=== PATIENT | female | born 1990 | race Caucasian/White ===

== ENCOUNTER 2017-01-26 18:05 | Emergency (ER) | payer OTHER ==
[~2017-01-26] VITALS: Wt 83.0 kg
[~2017-01-26 18:05] MED LIST: CALC600T11 PO; FERR240T9 PO; IBUP800T25 PO; PERCOCET PO; PRENAT PO
[2017-01-26] MEDS ORDERED: IBUPROFEN 600 MG TAB PO ONE (18:30)
--- NOTE | 2017-01-26 18:58 | ERD ---
ER Documentation Chief Complaint Date/Time DATE: 01/26/17 TIME: 18:54 Chief Complaint RIGHT ANKLE INJURY S/P FALL FROM STAIRS, NO KO HPI 26-year-old female presents here in emergency department for complaints right ankle and foot pain after twisting it while falling off the stairs today. Patient's complaining of right ankle pain, right foot pain throbbing pain, 6/10 scale, worse upon movement, patient did not take any medications to help with symptoms. Patient denies any fever or chills. ROS All systems reviewed and are negative except as per history of present illness. Medications Home Meds Active Scripts Oxycodone Hcl/Acetaminophen (Percocet) 1 Tab Tab, 2 TAB PO Q4H Y for PAIN LEVEL 6-10, #30 TAB 0 Refills Prov:JIMMY GALVAN MD 03/19/15 Ibuprofen* (Ibuprofen*) 800 Mg Tab, 800 MG PO Q8, #20 0 Refills Prov:JIMMY GALVAN MD 03/19/15 Reported Medications Calcium Carbonate* (Calcium Carbonate*) 600 MG Ca Tab, 600 MG PO DAILY, TAB 12/11/14 Ferrous Gluconate (Iron) 1 Tab Tablet, 1 TAB PO DAILY 12/11/14 Multivit/Min/Fol Ac/Iron/Pren* ( S*) 1 Tab Tab, 1 TAB PO DAILY, TAB 12/11/14 Allergies Allergies: Coded Allergies: No Known Allergy (Verified , 03/23/15) PMhx/Soc Medical and Surgical Hx: pt denies Medical Hx, pt denies Surgical Hx Hx Alcohol Use: No Hx Substance Use: No Hx Tobacco Use: No Smoking Status: Never smoker FmHx Family History: No coronary disease, No diabetes, No other Physical Exam Vitals Vital Signs Date Time Temp Pulse Resp B/P Pulse Ox O2 Delivery O2 Flow Rate FiO2 01/26/17 18:08 99.1 96 17 145/74 98 Physical Exam GENERAL: The patient is well developed and appropriate for usual state of health, in no apparent distress. CHEST: Clear to auscultation bilaterally. There are no rales, wheezes or rhonchi. HEART: Regular rate and rhythm. No murmurs, clicks, rubs or gallops. No S3 or S4. ABDOMEN: Soft, nontender and nondistended. Good bowel sounds. No rebound or guarding. No gross peritonitis. No gross organomegaly or masses. No Stafford sign or McBurney point tenderness. BACK: No midline or flank tenderness. EXTREMITIES: Equal pulses bilaterally. There is no peripheral clubbing, cyanosis or edema. No focal swelling or erythema. Full range of motion. Grossly neurovascularly intact. NEURO: Alert and oriented. Cranial nerves 2-12 intact. Motor strength in all 4 extremities with 5/5 strength. Sensation grossly intact. Normal speech and gait. SKIN: There is no apparent rash or petechia. The skin is warm and dry. HEMATOLOGIC AND LYMPHATIC: There is no evidence of excessive bruising or lymphedema. No gross cervical, axillary, or inguinal lymphadenopathy. Results 24 hrs Current Medications Medications (Trade) Dose Ordered Sig/Bakari Route PRN Reason Start Time Stop Time Status Last Admin Dose Admin Ibuprofen (Motrin) 600 mg ONCE ONCE PO 01/26/17 18:30 01/26/17 18:31 DC 01/26/17 18:35 Patient was given medication for pain here in emergency department, after treatment, patient verbalized feeling much better. Patient's pain is improved. PROCEDURE: XR Right Ankle CLINICAL INDICATION: Pain TECHNIQUE: Standard 3 view radiographs were submitted. COMPARISON: None FINDINGS: Osseous structures: Well mineralized and intact with no fracture or destructive process identified. Joint spaces: The ankle mortise is anatomically maintained. Soft tissues: There is medial soft tissue prominence. IMPRESSION: 1. Medial soft tissue prominence. 2. Otherwise, unremarkable right ankle series. Physician Renato Date Time Electronically viewed and signed by Physician Renato on 01/26/2017 19:33 RH/ CC: JAZ JAIMES NP PROCEDURE: XR Right Foot CLINICAL INDICATION: Pain TECHNIQUE: AP, oblique, and lateral radiographs were submitted. COMPARISON: None FINDINGS: Osseous structures: appear well mineralized and intact with no fracture or destructive process identified. Joint spaces: are well maintained, with no significant spurring, erosion or joint effusion evident. Soft tissues: appear unremarkable. IMPRESSION: Unremarkable right foot. Physician Renato Date Time Electronically viewed and signed by Physician Renato on 01/26/2017 19:34 RH/ After receiving patients xray report, an Jose wrap was applied on the patients right ankle and right foot. After application of the Jose wrap, patient has intact sensation and circulation on distal area of the affected joint. Patient does not complain of numbness or tingling after application of the Jose wrap. Patient tolerated procedure well. Crutches was given to use afterwards. Procedures/MDM Medical Decision Making: Patient's pain is most likely consistent with a right foot /ankle contusion or a sprain. There is no suspicion for neurovascular compromise. Patient has intact sensation and circulation of the affected extremity. There is low suspicion for septic arthritis. Patient does not have any fever. Radiology exams of the affected area does not show any fracture or dislocation. Disposition: Home. Patient is given prescription for ibuprofen for pain. Patient was advised to elevate the affected area and apply ice on affected area. Patient was advised that if symptoms are worse, numbness, tingling, high fever, unable to move joint, worsening symptoms, to return to emergency department immediately. Otherwise, patient is advised to follow up with the primary care doctor in 5-7 days for reevaluation of symptoms. Departure Diagnosis: Primary Impression: Ankle pain Laterality: right Chronicity: acute Qualified Code: M25.571 - Acute right ankle pain Additional Impression: Foot pain Laterality: right Qualified Code: M79.671 - Right foot pain Condition: Stable Patient Instructions: Sprain Foot, Sprain, Ankle, With X-Ray Additional Instructions: Patient is given prescription for ibuprofen for pain. Patient was advised to elevate the affected area and apply ice on affected area. Patient was advised that if symptoms are worse, numbness, tingling, high fever, unable to move joint , worsening symptoms, to return to emergency department immediately. Otherwise, patient is advised to follow up with the primary care doctor in 5-7 days for reevaluation of symptoms. JAZ JAIMES NP Jan 26, 2017 18:58
--- NOTE | 2017-01-26 19:33 | RADRPT ---
PROCEDURE: XR Right Ankle CLINICAL INDICATION: Pain TECHNIQUE: Standard 3 view radiographs were submitted. COMPARISON: None FINDINGS: Osseous structures: Well mineralized and intact with no fracture or destructive process identified. Joint spaces: The ankle mortise is anatomically maintained. Soft tissues: There is medial soft tissue prominence. IMPRESSION: 1. Medial soft tissue prominence. 2. Otherwise, unremarkable right ankle series. Physician Renato Date Time Electronically viewed and signed by Lisa Tineo Physician on 01/26/2017 19:33 /
--- NOTE | 2017-01-26 19:34 | RADRPT ---
PROCEDURE: XR Right Foot CLINICAL INDICATION: Pain TECHNIQUE: AP, oblique, and lateral radiographs were submitted. COMPARISON: None FINDINGS: Osseous structures: appear well mineralized and intact with no fracture or destructive process iden tified. Joint spaces: are well maintained, with no significant spurring, erosion or joint effusion evident. Soft tissues: appear unremarkable. IMPRESSION: Unremarkable right foot. Physician Renato Date Time Electronically viewed and signed by Lisa Tineo Physician on 01/26/2017 19:34 /
[2017-01-26] MEDS ORDERED: IBUP-1542 PO (19:44)
[2017-01-26 20:06] VITALS: BP 138/67; PULSE 69; RESP 16; TEMP 98.8
== END 2017-01-26 20:07 | disposition home or self-care (01) ==
LOC: FTE 18:05
DX: M25.571 Pain in right ankle and joints of right foot (principal); M79.671 Pain in right foot
CPT/HCPCS: 73610; 73630; Z7502; Z7610

== ENCOUNTER 2018-01-10 06:40 | Emergency (ER) | END 2018-01-10 09:04 | disposition home or self-care (01) ==

== ENCOUNTER 2018-04-09 10:13 | Emergency (ER) | END 2018-04-09 14:03 | disposition home or self-care (01) ==

== ENCOUNTER 2018-04-13 13:57 | Day surgery (SDC) | END 2018-04-13 19:10 | disposition home or self-care (01) ==